=== PATIENT | female | born 1950 | race Caucasian/White ===

== ENCOUNTER 2020-07-01 21:04 | Emergency (ER) | payer BC, MEDICARE ==
[~2020-07-01] VITALS: Ht 165.1 cm; Wt 83.6 kg
[2020-07-01] MEDS ORDERED: SUCCINYLCHOLINE 200 MG/10 ML VIAL. ONE (21:12)
--- NOTE | 2020-07-01 21:22 | PHYS DOC ---
Past History Past Medical History no past medical history known on presentation Past Surgical History no past surgical history known Smoking: Non-smoker General Adult EDM: Chief Complaint: unresponsive HPI: HPI: Patient is a 70 year old female who presents via EMS after being found unresponsive. Patient was found lying in her kitchen and a bystander called EMS. Blood sugar 125 prior to arrival. IV was established and was patient was given Narcan 2 mg IV x2 doses prior to arrival with no improvement of symptoms. On synthetic filament extruder arrival she was not responsive and her sats were in the mid 80% range she was breathing spontaneously but had shallow respirations. GCS 3 on arrival. Patient was not responsive to noxious stimuli and did not have a gag reflex. Last known time well was about 5 PM when she talk to somebody on the phone. No visible signs of injury or trauma. Pupils were pinpoint on arrival and equal Review of Systems: Review of Systems: Constitutional: comatose Eyes: pinpoint pupils on arrival HENT: comatous Respiratory: shortness of breath Cardiovascular: comatose GI: comatose, no vomiting prior to arrival : comatose Musculoskeletal: comatose Integument: no rash Neurologic: Comatose Endocrine: comatose Lymphatic: comatose Psychiatric: comatose Heart Score: HEART Score for Chest Pain: HEART Score for Chest Pain Response (Comments) Value History Highly Suspicious 2 ECG Normal 0 Age > 65 2 Risk Factors No Risk Factors 0 Troponin < Normal Limit 0 Total 4 Risk Factors: Risk Factors: DM, Current or recent (<one month) smoker, HTN, HLP, family history of CAD, obesity. Risk Scores: Score 0 - 3: 2.5% MACE over next 6 weeks - Discharge Home Score 4 - 6: 20.3% MACE over next 6 weeks - Admit for Clinical Observation Score 7 - 10: 72.7% MACE over next 6 weeks - Early Invasive Strategies Current Medications: Current Meds: Current Medications Medications (Trade) Dose Ordered Sig/Lorenzo Start Time Stop Time Status Last Admin Dose Admin Succinylcholine Chloride (Anectine) 200 mg STK-MED ONCE 07/01/20 21:12 07/01/20 21:13 DC Physical Exam: PE: Constitutional: Well developed, well nourished, toxic appearance. [] HENT: Normocephalic, atraumatic, bilateral external ears normal, oropharynx moist, no oral exudates, nose normal. [] Eyes: Pupils pinpoint, minimally reactive, conjunctiva normal, no discharge. [] Neck: supple, no stridor. [] Cardiovascular:Heart rate regular rhythm, no murmur [] Lungs & Thorax: Bilateral breath sounds clear to auscultation, shallow respiratory effort on arrival [] Abdomen: Bowel sounds normal, soft, no masses, no pulsatile masses. [] Skin: Warm, dry, no erythema, no rash. [] Back: comatose. [] Extremities: no cyanosis, no edema. [] Neurologic: Comatose, GCS 3 on arrival, no response to noxious stimuli, no gag reflex. [] Psychologic: comatose. [] Current Patient Data: Labs: ABG read at 2141 showed pH 7.29, PCO2 53, PO2 329, bicarb 26 Vital Signs: Laboratory Tests Test 07/01/20 21:10 07/01/20 22:11 07/01/20 22:36 White Blood Count 8.5 x10^3/uL Red Blood Count 3.58 x10^6/uL Hemoglobin 10.3 g/dL Hematocrit 32.4 % Mean Corpuscular Volume 91 fL Mean Corpuscular Hemoglobin 29 pg Mean Corpuscular Hemoglobin Concent 32 g/dL Red Cell Distribution Width 15.1 % Platelet Count 296 x10^3/uL Neutrophils (%) (Auto) 63 % Lymphocytes (%) (Auto) 25 % Monocytes (%) (Auto) 8 % Eosinophils (%) (Auto) 3 % Basophils (%) (Auto) 1 % Neutrophils # (Auto) 5.4 x10^3uL Lymphocytes # (Auto) 2.1 x10^3/uL Monocytes # (Auto) 0.7 x10^3/uL Eosinophils # (Auto) 0.2 x10^3/uL Basophils # (Auto) 0.1 x10^3/uL Prothrombin Time 9.7 SEC Prothromb Time International Ratio 0.9 Blood Gas pH 7.30 Blood Gas PCO2 54 mmHg Blood Gas PO2 329 mmHg Blood Gas HCO3 26 mmol/L Arterial Bld O2 Saturation (Calc) 100 % FiO2 90 % Creatine Kinase 46 U/L Creatine Kinase MB (Mass) 1.0 ng/mL Creatine Kinase MB Relative Index % Troponin I Quantitative < 0.017 ng/mL IQ-Ynt-A-Type Natriuretic Peptide 102 pg/mL Urine Collection Type Unknown Urine Color Yellow Urine Clarity Hazy Urine pH 7.5 Urine Specific [place] 1.020 Urine Protein 30 mg/dl Urine Glucose (UA) Neg mg/dL Urine Ketones (Stick) Neg mg/dL Urine Blood Large Urine Nitrite Neg Urine Bilirubin Neg Urine Urobilinogen Dipstick 0.2 mg/dL Urine Leukocyte Esterase Trace Urine RBC >40 /HPF Urine WBC 11-20 /HPF Urine Squamous Epithelial Cells Few /LPF Urine Bacteria Mod /HPF Urine Opiates Screen Neg Urine Methadone Screen Neg Urine Barbiturates Neg Urine Phencyclidine Screen Neg Urine Amphetamine/Methamphetamine Neg Urine Benzodiazepines Screen Pos Urine Cocaine Screen Neg Urine Cannabinoids Screen Neg Urine Ethyl Alcohol Neg Sodium Level 138 mmol/L Potassium Level 4.6 mmol/L Chloride Level 103 mmol/L Carbon Dioxide Level 26 mmol/L Anion Gap 9 Blood Urea Nitrogen 14 mg/dL Creatinine 0.9 mg/dL Estimated GFR (Cockcroft-Gault) 62.3 BUN/Creatinine Ratio 16 Glucose Level 117 mg/dL Calcium Level 8.7 mg/dL Total Bilirubin Pending Aspartate Amino Transf (AST/SGOT) Pending Alanine Aminotransferase (ALT/SGPT) Pending Alkaline Phosphatase Pending Total Protein Pending Albumin Pending Albumin/Globulin Ratio Pending Current Medications Medications (Trade) Dose Ordered Sig/Lorenzo Route PRN Reason Start Time Stop Time Status Last Admin Dose Admin Succinylcholine Chloride (Anectine) 200 mg STK-MED ONCE .ROUTE 07/01/20 21:12 07/01/20 21:13 DC Propofol (Diprivan) 200,000 mcg 1X ONCE IV 07/01/20 21:30 07/01/20 22:18 DC Propofol 100 ml @ As Directed STK-MED ONCE IV 07/01/20 21:23 07/01/20 21:23 DC Propofol (Diprivan) 200,000 mcg 1X ONCE IV 07/01/20 22:30 07/01/20 22:32 DC 07/01/20 21:25 Midazolam HCl (Versed) 5 mg 1X ONCE IV 07/01/20 22:45 07/01/20 22:46 DC 07/01/20 21:16 Sodium Chloride 1,000 ml @ 0 mls/hr 1X IV 07/01/20 22:45 07/01/20 23:44 Sodium Chloride 1,000 ml @ 0 mls/hr 1X ONCE IV 07/01/20 23:45 07/01/20 23:46 EKG: EKG: Normal sinus rhythm, rate 68, leftward axis, otherwise unremarkable EKG, inverted T wave lead III, not STEMI [] Radiology/Procedures: Radiology/Procedures: [address] [address] IMAGING REPORT Signed PATIENT: JOVI KNAPP ACCOUNT: [id number] : 1950 LOCATION: ER AGE: 70 SEX: F EXAM STATUS: REG ER ORD. PHYSICIAN: JEFFY FERNANDES DO REASON: COMATOSE, FOUND UNRESPONSIVE.PT BAGGED.SOA PROCEDURE: PORTABLE CHEST 1V PORTABLE CHEST 1V Clinical Indication: Reason: COMATOSE, FOUND UNRESPONSIVE. PT BAGGED.SOA / Comparison: None. Findings: Endotracheal tube tip is approximately 3.6 cm superior to the ezekiel. Enteric tube tip is in the stomach. The cardiomediastinal silhouette is normal. There are low lung volumes. Difficult to exclude left basilar airspace disease due to the cardiac silhouette. Lungs are otherwise clear. There is no pneumothorax. No pleural effusion is appreciated. No acute bone abnormality. IMPRESSION: 1. Appropriate position of endotracheal and enteric tubes. 2. Low lung volumes. Cannot exclude left basilar airspace disease. Electronically signed by: Angel Velazquez MD (07/01/2020 10:24 PM) [facility] DICTATED AND SIGNED BY: ANGEL VELAZQUEZ MD DATE: 07/01/202223 CC: PCP,UNKNOWN; JEFFY FERNANDES DO ~ [] Impressions: [address] [address] IMAGING REPORT Signed PATIENT: JOVI KNAPP ACCOUNT: [id number] : 1950 LOCATION: ER AGE: 70 SEX: F EXAM STATUS: REG ER ORD. PHYSICIAN: JEFFY FERNANDES DO REASON: COMATOSE, FOUND UNRESPONSIVE.PT BAGGED.SOA PROCEDURE: CT HEAD AND CERVICAL SPINE WO STUDY: CT head and cervical spine without contrast INDICATION: Comatose. Found unresponsive. COMPARISON: None. TECHNIQUE: Axial CT imaging through the head and cervical spine without the use of intravenous contrast. Sagittal and coronal reformats were obtained. One or more of the following individualized dose reduction techniques were utilized for this examination: 1. Automated exposure control 2. Adjustment of the mA and/or kV according to patient size 3. Use of iterative reconstruction technique. FINDINGS: CT head: No acute intracranial hemorrhage. Be-white matter differentiation is maintained. No mass effect, midline shift or hydrocephalus. No acute abnormality seen to involve the scalp or imaged orbits. Intact calvarium. CT cervical spine: Partially imaged orogastric and endotracheal tubes. Reversal of cervical lordosis centered at C5. Severe discogenic arthrosis at C5-C6 more so than C4-C5 and C6-C7. Grade 1 anterolisthesis of C4 on C5 is presumably degenerative given the degree of facet degeneration at this level particularly on the left. Degenerative changes at the atlantodental interface. Osseous neural foraminal encroachment most severe on the right at C5-C6. Central canal stenosis is greatest at C5-C6 that is at least moderate to potentially severe. No acute fracture is identified. No prevertebral or dorsal paraspinous hematoma to suggest occult osseous injury. Scattered calcific atherosclerosis. Gas posterior to the left clavicle is likely iatrogenic from venipuncture. No apical pneumothorax. IMPRESSION: CT head: 1. No acute intracranial abnormality by CT. CT cervical spine: 1. No acute fracture. 2. Advanced multifactorial degenerative changes, as above, collectively greatest at C5-C6 where there is at least moderate to potentially severe central canal stenosis and right more so than left osseous neural foraminal stenosis. Electronically signed by: SIDDHARTHA ROTHMAN MD (07/01/2020 10:41 PM) [id number] DICTATED AND SIGNED BY: SIDDHARTHA ROTHMAN MD DATE: 07/01/202240 CC: PCP,UNKNOWN; JEFFY FERNANDES DO ~ Course & Med Decision Making: Course & Med Decision Making Pertinent Labs and Imaging studies reviewed. (See chart for details) 2121 patient started on a propofol drip because her gag reflex had returned and her systolic blood pressure improved to 150 systolic. We wanted to keep the patient sedated until the rest of the ER work-up could be completed 2209 case was discussed with Pao Rader a family member. She states that she had talked to this patient about 3:30 PM today after the patient gotten off work. Patient was complaining of acute on chronic knee pain. Patient was found about 8:20 PM by a niece. Patient was found unresponsive lying on the kitchen floor. There were thready vital signs so CPR was not started. Patient has a history of chronic pain and does take medications including tramadol, Naprosyn and others. Patient has no other known significant past medical history. Patient is not known to this institution and did not have old records I could review. Patient's vital signs have since normalized and we waiting for the rest of her ED work-up to be completed. Patient is resting comfortably on the ventilator 2304 major results known. Hospitalist service contacted at [facility] to accept case 2329 Dr. Sr is the accepting physician to [facility] to the intensive care unit 0059 Stable, EMS here to transport pt. She is somewhat more responsive again and the propofol drip was adjusted. Versed 5mg IVP added at this time to help with sedation for the ambulance transfer. Dragon Disclaimer: Dragon Disclaimer: This electronic medical record was generated, in whole or in part, using a voice recognition dictation system. Departure Departure: Impression: Primary Impression: Comatose Qualified Codes: R40.2431 - Gianna coma scale score 3-8, in the field [emt or ambulance] Additional Impressions: Acute UTI Respiratory failure Qualified Codes: J96.01 - Acute respiratory failure with hypoxia Chronic pain Qualified Codes: G89.4 - Chronic pain syndrome Disposition: 05 TRANSFER OTHER (Dr. Sr is accepting to the ICU at [facility]) Condition: STABLE Justification of Admission: Justification of Admission: Justification of Admission Dx: Yes Respiratory Failure: Mechanical Ventilation Intubation Intubation : Time of Intubation: 21:10 Intubation Method: orotracheal Tube Size (cm): 7.5 Medications: Succinylcholine Breath Sounds after Intubation: equal Intubation Complications: no complications Post Intubation Xray: Yes Progress/Xray Impression: Oxygenation sats 100% before and after intubation. Critical Care Time Critical care time was 30 minutes exclusive of procedures. This included assessing labs, x-ray results, talking to admitting transfer physician JEFFY FERNANDES DO Jul 01, 2020 21:22
[2020-07-01] MEDS ORDERED: PROPOFOL 100 ML IV ONE (21:23)
[2020-07-01] MEDS ORDERED: PROPOFOL 10,000 MCG/ML (20ML) VIAL IV ONE ×2 (21:30→22:30)
[2020-07-01 22:05] LABS: BASO # 0.1 x10^3/uL (0.0-0.2); BASO % 1 % (0-3); EOS # 0.2 x10^3/uL (0.0-0.7); EOS % 3 % (0-3); HEMATOCRIT 32.4 % (36.0-47.0); HEMOGLOBIN 10.3 g/dL (12.0-15.5); LYMPH # 2.1 x10^3/uL (1.0-4.8); LYMPH % 25 % (24-48); MEAN CORPUSCULAR HEMOGLOBIN 29 pg (25-35); MEAN CORPUSCULAR HGB CONC 32 g/dL (31-37); MEAN CORPUSCULAR VOLUME 91 fL (79-100); MONO # 0.7 x10^3/uL (0.0-1.1); MONO % 8 % (0-9); NEUT # 5.4 x10^3uL (1.8-7.7); NEUT % 63 % (31-73); PLATELET COUNT 296 x10^3/uL (140-400); RED BLOOD COUNT 3.58 x10^6/uL (3.50-5.40); RED CELL DISTRIBUTION WIDTH 15.1 % (11.5-14.5); WHITE BLOOD COUNT 8.5 x10^3/uL (4.0-11.0)
--- NOTE | 2020-07-01 22:26 | RAD ---
PORTABLE CHEST 1V Clinical Indication: Reason: COMATOSE, FOUND UNRESPONSIVE. PT BAGGED.SOA / Comparison: None. Findings: Endotracheal tube tip is approximately 3.6 cm superior to the ezekiel. Enteric tube tip is in the stomach. The cardiomediastinal silhouette is normal. There are low lung volumes. Difficult to exclude left basilar airspace disease due to the cardiac silhouette. Lungs are otherwise clear. There is no pneumothorax. No pleural effusion is appreciated. No acute bone abnormality. IMPRESSION: 1. Appropriate position of endotracheal and enteric tubes. 2. Low lung volumes. Cannot exclude left basilar airspace disease. Electronically signed by: Angel Velazquez MD (07/01/2020 10:24 PM) [facility]
[2020-07-01 22:39] LABS: BGAS PH 7.3 (7.35-7.45)
[2020-07-01 22:42] LABS: BARBITURATES NEG (NEG); BENZODIAZEPINES POS (NEG); CANNABINOIDS NEG (NEG); COCAINE NEG (NEG); METHADONE NEG (NEG); OPIATES NEG (NEG); PHENCYCLIDINE NEG (NEG)
--- NOTE | 2020-07-01 22:44 | RAD ---
STUDY: CT head and cervical spine without contrast INDICATION: Comatose. Found unresponsive. COMPARISON: None. TECHNIQUE: Axial CT imaging through the head and cervical spine without the use of intravenous contrast. Sagittal and coronal reformats were obtained. One or more of the following individualized dose reduction techniques were utilized for this examination: 1. Automated exposure control 2. Adjustment of the mA and/or kV according to patient size 3. Use of iterative reconstruction technique. FINDINGS: CT head: No acute intracranial hemorrhage. Be-white matter differentiation is maintained. No mass effect, midline shift or hydrocephalus. No acute abnormality seen to involve the scalp or imaged orbits. Intact calvarium. CT cervical spine: Partially imaged orogastric and endotracheal tubes. Reversal of cervical lordosis centered at C5. Severe discogenic arthrosis at C5-C6 more so than C4-C5 and C6-C7. Grade 1 anterolisthesis of C4 on C5 is presumably degenerative given the degree of facet degeneration at this level particularly on the left. Degenerative changes at the atlantodental interface. Osseous neural foraminal encroachment most severe on the right at C5-C6. Central canal stenosis is greatest at C5-C6 that is at least moderate to potentially severe. No acute fracture is identified. No prevertebral or dorsal paraspinous hematoma to suggest occult osseous injury. Scattered calcific atherosclerosis. Gas posterior to the left clavicle is likely iatrogenic from venipuncture. No apical pneumothorax. IMPRESSION: CT head: 1. No acute intracranial abnormality by CT. CT cervical spine: 1. No acute fracture. 2. Advanced multifactorial degenerative changes, as above, collectively greatest at C5-C6 where there is at least moderate to potentially severe central canal stenosis and right more so than left osseous neural foraminal stenosis. Electronically signed by: SIDDHARTHA ROTHMAN MD (07/01/2020 10:41 PM) [id number]
[2020-07-01 22:45] LABS: COLOR,URINE YELLOW
[2020-07-01] MEDS ORDERED: MIDAZOLAM HCL PF 5 MG/5 ML VIAL. IV ONE (22:45)
[2020-07-01] MEDS ORDERED: IV NORMAL SALINE 1,000ML 1,000 ML IV SCH (22:45)
[2020-07-01 22:46] LABS: BILIRUBIN,URINE NEG (NEG); CLARITY,URINE HAZY; GLUCOSE,URINE NEG (NEG); NITRITE,URINE NEG (NEG); UROBILINOGEN,URINE 0.2 mg/dL (0.2 mg/dL)
[2020-07-01 22:47] LABS: AMPHETAMINE/METHAMPHETAMINE NEG (NEG)
[2020-07-01 22:54] LABS: BACTERIA,URINE MOD /HPF (0-FEW); RBC,URINE >40 /HPF (0-2); SQUAMOUS EPITHELIAL CELL,UR FEW /LPF
[2020-07-01 22:55] LABS: CALCIUM 8.7 mg/dL (8.5-10.1); CREATININE 0.9 mg/dL (0.6-1.0); GFR 62.3; POTASSIUM 4.6 mmol/L (3.5-5.1)
[2020-07-01 23:01] LABS: ALBUMIN 3.3 g/dL (3.4-5.0); ALBUMIN/GLOBULIN RATIO 1.1 (1.0-1.7); TOTAL BILIRUBIN 0.4 mg/dL (0.2-1.0); TOTAL PROTEIN 6.2 g/dL (6.4-8.2)
[2020-07-01] MEDS ORDERED: PROPOFOL 100 ML IV PRN (23:30)
[2020-07-01] MEDS ORDERED: IV NORMAL SALINE 1,000ML 1,000 ML IV ONE (23:45)
[2020-07-01] MEDS ORDERED: IV NORMAL SALINE 50ML 50 ML ONE (23:54)
[2020-07-01] MEDS ORDERED: cefTRIAXone SODIUM 1 GM VIAL ONE (23:54)
[2020-07-02 00:38] VITALS: BP 104/65
[2020-07-02] MEDS ORDERED: MIDAZOLAM HCL PF 5 MG/5 ML VIAL. IV ONE (01:30)
--- NOTE | 2020-07-02 14:56 | EKG ---
[address] [address] Test Date: 2020-07-01 Test Time: 21:30:27 Pat Name: JOVI KNAPP Department: Room: Gender: F Time Study Observer: : 1950 Requested By: JEFFY FERNANDES Order Number: [id number] Reading MD: Mark Shipman Measurements Intervals [place] Rate: 68 P: 42 ND: 166 QRS: -20 QRSD: 90 T: 18 QT: 460 QTc: 489 Interpretive Statements SINUS RHYTHM LEFTWARD AXIS PROLONGED QT Electronically Signed On 07-07-2020 12:56:59 CDT by Mark Shipman
== END 2020-07-02 01:18 | disposition short-term general hospital (02) ==
LOC: ER 21:04
DX: N39.0 Urinary tract infection, site not specified (principal); J96.01 Acute respiratory failure with hypoxia; G89.4 Chronic pain syndrome; R40.2431 Glasgow coma scale score 3-8, in the field [EMT or ambulance]
CPT/HCPCS: 31500; 36415; 51702; 70450; 71045; 72125; 80053; 80307; 81001; 82553; 82803; 83880; 84484; 85025; 85610; 87040; 93005; 96361; 96365; 99152; 99291; J0696; J2250; J2704; J7030; 83605

== ENCOUNTER 2021-08-18 07:41 | Emergency (ER) | payer BC ==
[~2021-08-18] VITALS: Ht 165.1 cm; Wt 74.0 kg
[2021-08-18] MEDS ORDERED: ONDANSETRON PF 4 MG/2 ML VIAL. IVP ONE ×2 (08:00→11:00)
--- NOTE | 2021-08-18 08:04 | PHYS DOC ---
Past History Past Medical History: Other Additional Past Medical Histor: kidney stones Past Surgical History: Hysterectomy, Other Additional Past Surgical Histo: unknown Smoking: Non-smoker Alcohol Use: None General Adult EDM: Chief Complaint: BACK PAIN - NO INJURY HPI: HPI: 71-year-old female presents via EMS with sudden onset right flank pain. Patient woke up around 3 AM with pain in the right flank. She thought it might be related to her chronic low back pain so he took the gabapentin but the pain intensified. It is radiating around to the right lower quadrant of her abdomen. She describes it as an intense cramping sensation. It intensifies in waves and decreases, but does not go away. She does have a history of kidney stones in the past. She denies fever or chills. She has no other complaints at this time. Review of Systems: Review of Systems: Constitutional: Denies fever or chills Eyes: Denies change in visual acuity HENT: Denies nasal congestion or sore throat Respiratory: Denies cough or shortness of breath Cardiovascular: Denies chest pain or edema GI: Right lower quadrant abdominal pain, nausea. Denies vomiting, bloody stools or diarrhea : Denies dysuria Musculoskeletal: Right flank pain. Chronic back pain at baseline. Integument: Denies rash Neurologic: Denies headache, focal weakness or sensory changes Endocrine: Denies polyuria or polydipsia Lymphatic: Denies swollen glands Psychiatric: Denies depression or anxiety Allergies: Allergies: Allergies Coded Allergies Type Severity Reaction Last Updated Verified Unable to Assess 07/01/20 No Physical Exam: PE: Constitutional: Well developed, well nourished, obese, mild acute distress, non- toxic appearance. [] HENT: Normocephalic, atraumatic, bilateral external ears normal, oropharynx moist, no oral exudates, nose normal. [] Eyes: PERRLA, EOMI, conjunctiva normal, no discharge. [] Neck: Normal range of motion, no tenderness, supple, no stridor. [] Cardiovascular: Heart rate regular rhythm, no murmur [] Lungs & Thorax: Bilateral breath sounds clear to auscultation [] Abdomen: Bowel sounds normal, soft, no tenderness, no masses, no pulsatile masses. [] Skin: Warm, dry, no erythema, no rash. [] Back: No tenderness, right CVA tenderness. [] Extremities: No tenderness, no cyanosis, no clubbing, ROM intact, no edema. [] Neurologic: Alert and oriented X 3, normal motor function, normal sensory function, no focal deficits noted. [] Psychologic: Affect normal, judgement normal, mood normal. [] Current Patient Data: Vital Signs: Vital Signs Date Time Temp Pulse Resp B/P (MAP) Pulse Ox O2 Delivery O2 Flow Rate FiO2 08/18/21 07:51 97.4 54 20 179/88 (118) 100 Room Air EKG: EKG: [] Radiology/Procedures: Radiology/Procedures: [] Impressions: EXAMINATION: CT ABDOMEN+PELVIS WO CLINICAL HISTORY: Right flank pain TECHNIQUE: Imaging of the abdomen and pelvis was performed without intravenous contrast using standard technique, scanning from just above the dome of the diaphragm to the symphysis pubis. Unenhanced imaging is limited for the evaluation of some intra-abdominal and pelvic pathology. CT Dose Reduction Employed: One or more of the following individualized dose reduction techniques were utilized for this examination: 1. Automated exposure control 2. Adjustment of the mA and/or kV according to patient size 3. Use of iterative reconstruction technique. COMPARISON: None FINDINGS: Mild bibasilar subsegmental atelectasis and/or scarring. 2.5 cm subcapsular hypodense lesion in the left hepatic lobe, incompletely evaluated but favors a simple cyst. Gallbladder, pancreas, spleen, and adrenal glands unremarkable. 7 mm calculus in the proximal right ureter and 1.2 cm calculus in the right renal pelvis with moderate hydroureteronephrosis, renal edema, and perinephric stranding. Multiple additional nonobstructive right renal calculi. 8 mm calculus in the mid left ureter with mild hydroureteronephrosis. 1.3 cm partially exophytic lesion isodense to the surrounding cortex along the posterior upper pole of the left kidney versus focal lobulation, incompletely evaluated. Mildly filled urinary bladder. Uterus not definitively visualized, likely surgically absent. No dilated bowel. Colonic diverticulosis, greatest in the sigmoid colon, without evidence of acute diverticulitis on limited noncontrast evaluation. Appendix within normal limits. Arterial atherosclerotic calcification without aneurysm. Multilevel thoracolumbar degenerative changes with grade 1 L5-S1 anterolisthesis. IMPRESSION: Calculi in the right proximal ureter and renal pelvis with moderate hydroureteronephrosis and reactive inflammatory changes as described. Additional nonobstructive right nephrolithiasis. 8 mm calculus in the mid left ureter with mild hydroureteronephrosis. Nonspecific 1.3 cm left renal lesion as described, possibly a complex cyst but solid mass cannot be excluded. Recommend nonemergent/outpatient renal ultrasound for further evaluation. Additional nonacute findings as described. Electronically signed by: Gilbert Pratt DO (08/18/2021 9:03 AM) [facility] DICTATED AND SIGNED BY: GILBERT PRATT DO DATE: 08/18/21848 CC: YAMINI HENRY DO; PCP,UNKNOWN ~MTH0 0 Heart Score: C/O Chest Pain: N/A Risk Factors: Risk Factors: DM, Current or recent (<one month) smoker, HTN, HLP, family history of CAD, obesity. Risk Scores: Score 0 - 3: 2.5% MACE over next 6 weeks - Discharge Home Score 4 - 6: 20.3% MACE over next 6 weeks - Admit for Clinical Observation Score 7 - 10: 72.7% MACE over next 6 weeks - Early Invasive Strategies Course & Med Decision Making: Course & Med Decision Making Pertinent Labs and Imaging studies reviewed. (See chart for details) The patient CT is significant for bilateral kidney stones. There is an 8 mm stone obstructing the left ureter. See official read for more details. The patient's labs are unremarkable. The patient's urinalysis is pending. The patient stone is unlikely to pass and she more than likely needs further management of her stones on both sides. We will transfer the patient to another hospital with urology. She has had 2 doses of 75 mcg of fentanyl thus far. The patient would prefer to go to [facility] where she went 7 years ago. I spoke with [facility] and Dr. Alford believes the patient is appropriate, but there are no beds available at any campus. They will keep looking and we will try other hospital systems. We were able to find a bed for the patient at [facility]. Dr. Salgado has accepted the patient for transfer. She will go by ambulance. [] Ximena Disclaimer: Ximena Disclaimer: This electronic medical record was generated, in whole or in part, using a voice recognition dictation system. Departure Departure: Impression: Primary Impression: Bilateral kidney stones Disposition: 02 SHORT TERM HOSPITAL Condition: STABLE Referrals: PCP,UNKNOWN (PCP) YAMINI HENRY DO Aug 18, 2021 08:04
[2021-08-18] MEDS ORDERED: IV NORMAL SALINE 1,000ML 1,000 ML IV ONE (08:15)
[2021-08-18 08:23] LABS: BASO # 0.1 x10^3/uL (0.0-0.2); BASO % 1 % (0-3); EOS # 0.2 x10^3/uL (0.0-0.7); EOS % 2 % (0-3); HEMATOCRIT 37.4 % (36.0-47.0); HEMOGLOBIN 12.1 g/dL (12.0-15.5); LYMPH # 1.4 x10^3/uL (1.0-4.8); LYMPH % 14 % (24-48); MEAN CORPUSCULAR HEMOGLOBIN 29 pg (25-35); MEAN CORPUSCULAR HGB CONC 33 g/dL (31-37); MEAN CORPUSCULAR VOLUME 88 fL (79-100); MONO # 0.6 x10^3/uL (0.0-1.1); MONO % 6 % (0-9); NEUT # 8.3 x10^3uL (1.8-7.7); NEUT % 79 % (31-73); PLATELET COUNT 384 x10^3/uL (140-400); RED BLOOD COUNT 4.27 x10^6/uL (3.50-5.40); RED CELL DISTRIBUTION WIDTH 14.5 % (11.5-14.5); WHITE BLOOD COUNT 10.6 x10^3/uL (4.0-11.0)
[2021-08-18 08:30] LABS: CALCIUM 9.8 mg/dL (8.5-10.1); CREATININE 0.8 mg/dL (0.6-1.0)
[2021-08-18 08:31] LABS: GFR 71.1; POTASSIUM 3.4 mmol/L (3.5-5.1)
[2021-08-18 08:36] LABS: ALBUMIN 3.9 g/dL (3.4-5.0); TOTAL BILIRUBIN 0.3 mg/dL (0.2-1.0); TOTAL PROTEIN 7.8 g/dL (6.4-8.2)
--- NOTE | 2021-08-18 09:06 | RAD ---
EXAMINATION: CT ABDOMEN+PELVIS WO CLINICAL HISTORY: Right flank pain TECHNIQUE: Imaging of the abdomen and pelvis was performed without intravenous contrast using standar d technique, scanning from just above the dome of the diaphragm to the symphysis pubis. Unenhanced i maging is limited for the evaluation of some intra-abdominal and pelvic pathology. CT Dose Reduction Employed: One or more of the following individualized dose reduction techniques wer e utilized for this examination: 1. Automated exposure control 2. Adjustment of the mA and/or kV ac cording to patient size 3. Use of iterative reconstruction technique. COMPARISON: None FINDINGS: Mild bibasilar subsegmental atelectasis and/or scarring. 2.5 cm subcapsular hypodense lesion in the left hepatic lobe, incompletely evaluated but favors a sim ple cyst. Gallbladder, pancreas, spleen, and adrenal glands unremarkable. 7 mm calculus in the proximal right ureter and 1.2 cm calculus in the right renal pelvis with moderat e hydroureteronephrosis, renal edema, and perinephric stranding. Multiple additional nonobstructive r ight renal calculi. 8 mm calculus in the mid left ureter with mild hydroureteronephrosis. 1.3 cm part ially exophytic lesion isodense to the surrounding cortex along the posterior upper pole of the left kidney versus focal lobulation, incompletely evaluated. Mildly filled urinary bladder. Uterus not definitively visualized, likely surgically absent. No dilated bowel. Colonic diverticulosis, greatest in the sigmoid colon, without evidence of acute di verticulitis on limited noncontrast evaluation. Appendix within normal limits. Arterial atherosclerotic calcification without aneurysm. Multilevel thoracolumbar degenerative changes with grade 1 L5-S1 anterolisthesis. IMPRESSION: Calculi in the right proximal ureter and renal pelvis with moderate hydroureteronephrosis and reactiv e inflammatory changes as described. Additional nonobstructive right nephrolithiasis. 8 mm calculus in the mid left ureter with mild hydroureteronephrosis. Nonspecific 1.3 cm left renal lesion as described, possibly a complex cyst but solid mass cannot be e xcluded. Recommend nonemergent/outpatient renal ultrasound for further evaluation. Additional nonacute findings as described. Electronically signed by: Gilbert Arauz DO (08/18/2021 9:03 AM) JERAMY
[2021-08-18] MEDS ORDERED: MORPHINE SULFATE 4 MG/ML DISP.SYRIN. IV ONE ×2 (10:30→13:00)
[2021-08-18 12:35] VITALS: BP 148/87
[2021-08-18] MEDS ORDERED: cefTRIAXone SODIUM 1 GM VIAL ONE (12:37)
[2021-08-18] MEDS ORDERED: IV NORMAL SALINE 50ML 50 ML ONE (12:37)
[2021-08-18 12:45] LABS: BACTERIA,URINE 0 /HPF (0-FEW); BILIRUBIN,URINE NEG (NEG); CLARITY,URINE HAZY; COLOR,URINE YELLOW; GLUCOSE,URINE NEG (NEG); NITRITE,URINE NEG (NEG); RBC,URINE >40 /HPF (0-2); SQUAMOUS EPITHELIAL CELL,UR MOD /LPF; UROBILINOGEN,URINE 0.2 mg/dL (0.2 mg/dL)
[2021-08-18 12:46] LABS: AMORPHOUS SEDIMENT,UR PRESENT /HPF
== END 2021-08-18 14:04 | disposition short-term general hospital (02) ==
LOC: ER 07:41
DX: N13.2 Hydronephrosis with renal and ureteral calculous obstruction (principal); Z20.822 Contact with and (suspected) exposure to COVID-19; Z87.442 Personal history of urinary calculi; Z90.710 Acquired absence of both cervix and uterus
CPT/HCPCS: 36415; 74176; 80053; 81001; 85025; 87086; 87426; 96361; 96365; 96375; 96376; 99285; J0696; J2270; J2405; J3010; J7030; U0003

== ENCOUNTER 2022-02-10 19:45 | Emergency (ER) | payer BC ==
[~2022-02-10] VITALS: Ht 165.1 cm; Wt 76.0 kg
[2022-02-10] MEDS ORDERED: IV NORMAL SALINE 1,000ML 1,000 ML IV ONE ×2 (20:00→20:45)
--- NOTE | 2022-02-10 20:01 | PHYS DOC ---
Past History Past Medical History: Other Additional Past Medical Histor: kidney stones Past Surgical History: Hysterectomy, Other Additional Past Surgical Histo: uretal stents Smoking: Non-smoker Alcohol Use: None General Adult EDM: Chief Complaint: WEAKNESS/GENERALIZED HPI: HPI: 72-year-old female presents with generalized weakness. The patient had bilateral ureteral stents placed for kidney stones recently. She had them both removed at [facility] yesterday. The patient felt like she had chills last night. She presents today because she has just felt more more rundown throughout the day. She denies shortness of breath, but was needing oxygen when EMS arrived. The patient is not normally on oxygen. She denies any chest pain. Review of Systems: Review of Systems: Constitutional: Generalized weakness, chills Eyes: Denies change in visual acuity HENT: Denies nasal congestion or sore throat Respiratory: Denies cough or shortness of breath Cardiovascular: Denies chest pain or edema GI: Denies abdominal pain, nausea, vomiting, bloody stools or diarrhea : Denies dysuria Musculoskeletal: Denies back pain or joint pain Integument: Denies rash Neurologic: Denies headache, focal weakness or sensory changes Endocrine: Denies polyuria or polydipsia Lymphatic: Denies swollen glands Psychiatric: Denies depression or anxiety Allergies: Allergies: Allergies Coded Allergies Type Severity Reaction Last Updated Verified No Known Drug Allergies 02/10/22 No Physical Exam: PE: Constitutional: Well developed, well nourished, no acute distress, non-toxic appearance. [] HENT: Normocephalic, atraumatic, bilateral external ears normal, oropharynx moist, no oral exudates, nose normal. [] Eyes: PERRLA, EOMI, conjunctiva normal, no discharge. [] Neck: Normal range of motion, no tenderness, supple, no stridor. [] Cardiovascular: Heart rate 88, regular rhythm, no murmur [] Lungs & Thorax: Bilateral breath sounds diminished. [] Abdomen: Bowel sounds normal, soft, no tenderness, no masses, no pulsatile masses. [] Skin: Warm, dry, no erythema, no rash. [] Back: No tenderness, no CVA tenderness. [] Extremities: No tenderness, no cyanosis, no clubbing, ROM intact, no edema. [] Neurologic: Alert and oriented X 3, normal motor function, normal sensory function, no focal deficits noted. [] Psychologic: Affect normal, judgement normal, mood normal. [] Current Patient Data: Vital Signs: Vital Signs Date Time Temp Pulse Resp B/P (MAP) Pulse Ox O2 Delivery O2 Flow Rate FiO2 02/10/22 19:49 98.1 88 18 80/50 (60) 96 EKG: EKG: Sinus rhythm, leftward axis, no ST elevation or depression. [] Radiology/Procedures: Radiology/Procedures: [] Impressions: Chest AP portable at 2008: Reason for examination: Short of breath. Comparison is made to previous study dated 07/01/2020. The heart size is normal. Mediastinum is unremarkable. Lung ca continue show elevation of the right hemidiaphragm. No acute infiltrates or pleural effusions are seen. No acute bony abnormalities are seen. Impression: No acute cardiopulmonary disease. Electronically signed by: Patsy Ward MD (02/10/2022 8:21 PM) [facility] DICTATED AND SIGNED BY: PATSY WARD MD DATE: 02/10/222019 CC: YAMINI HENRY DO; PCP,UNKNOWN ~ Heart Score: C/O Chest Pain: N/A Risk Factors: Risk Factors: DM, Current or recent (<one month) smoker, HTN, HLP, family history of CAD, obesity. Risk Scores: Score 0 - 3: 2.5% MACE over next 6 weeks - Discharge Home Score 4 - 6: 20.3% MACE over next 6 weeks - Admit for Clinical Observation Score 7 - 10: 72.7% MACE over next 6 weeks - Early Invasive Strategies Course & Med Decision Making: Course & Med Decision Making Pertinent Labs and Imaging studies reviewed. (See chart for details) On arrival we performed a room air oxygen saturation test. The patient's fi ngers were warm and she was satting 86%. She was then placed on 2 L. Patient's blood pressure was also low at 80/50. She is alert and oriented and not really complaining of anything specific other than weakness. We have started a liter normal saline. EKG is unremarkable. The patient's urinalysis was cloudy but not bloody. Her hemoglobin is 8.8. We have previous hemoglobins from 10-12. No obvious source of bleeding. The patient's blood pressure continues to be low. We will start a second regular of normal saline and undergoing treatment with a gram of Rocephin and 750 of levofloxacin for presumed UTI sepsis. The patient has almost had her 2 L and her blood pressure is still MAP under 60. We will start Levophed. I have talked to Altagracia REYNOSO at [facility] and she will get the patient an ICU bed for transfer. The patient is in agreement with this plan. She will go by ambulance. [] Dragon Disclaimer: Dragvictor m Disclaimer: This electronic medical record was generated, in whole or in part, using a voice recognition dictation system. Departure Departure: Impression: Primary Impression: UTI (urinary tract infection) Qualified Codes: N39.0 - Urinary tract infection, site not specified Additional Impression: Sepsis Disposition: 02 SHORT TERM HOSPITAL Condition: GUARDED Referrals: PCP,UNKNOWN (PCP) YAMINI HENRY DO February 10, 2022 20:00
[2022-02-10] MEDS ORDERED: CEPH500C PO (20:04)
[2022-02-10] MEDS ORDERED: GABA-585 PO (20:04)
[2022-02-10] MEDS ORDERED: TRAM100T10 PO (20:05)
[2022-02-10 20:18] LABS: BASO % 0 % (0-3); EOS % 0 % (0-3); HEMATOCRIT 27.9 % (36.0-47.0); HEMOGLOBIN 8.8 g/dL (12.0-15.5); LYMPH # 0.6 x10^3/uL (1.0-4.8); LYMPH % 4 % (24-48); MEAN CORPUSCULAR HEMOGLOBIN 26 pg (25-35); MEAN CORPUSCULAR HGB CONC 32 g/dL (31-37); MEAN CORPUSCULAR VOLUME 84 fL (79-100); MONO # 1.1 x10^3/uL (0.0-1.1); MONO % 8 % (0-9); NEUT # 12.1 x10^3uL (1.8-7.7); NEUT % 88 % (31-73); PLATELET COUNT 266 x10^3/uL (140-400); RED BLOOD COUNT 3.34 x10^6/uL (3.50-5.40); WHITE BLOOD COUNT 13.8 x10^3/uL (4.0-11.0)
--- NOTE | 2022-02-10 20:23 | RAD ---
Chest AP portable at 2008: Reason for examination: Short of breath. Comparison is made to previous study dated 07/01/2020. The heart size is normal. Mediastinum is unremarkable. Lung ca continue show elevation of the rig ht hemidiaphragm. No acute infiltrates or pleural effusions are seen. No acute bony abnormalities are seen. Impression: No acute cardiopulmonary disease. Electronically signed by: Patsy Henry MD (02/10/2022 8:21 PM) KELSEY
[2022-02-10 20:30] LABS: CALCIUM 8.1 mg/dL (8.5-10.1); GFR 24.6; POTASSIUM 3.5 mmol/L (3.5-5.1)
[2022-02-10 20:37] LABS: ALBUMIN 2.4 g/dL (3.4-5.0); ALBUMIN/GLOBULIN RATIO 0.9 (1.0-1.7); TOTAL BILIRUBIN 0.3 mg/dL (0.2-1.0); TOTAL PROTEIN 5.2 g/dL (6.4-8.2)
[2022-02-10] MEDS ORDERED: IV NORMAL SALINE 50ML 50 ML ONE (20:52)
[2022-02-10] MEDS ORDERED: cefTRIAXone SODIUM 1 GM VIAL ONE (20:52)
[2022-02-10] MEDS ORDERED: NOREPINEPHRINE BITARTRATE 8 MG in IV DEXTROSE 5% 250 ML IV PRN (21:00)
[2022-02-10] MEDS ORDERED: IV DEXTROSE 5% 250 ML IV ONE (21:09)
[2022-02-10] MEDS ORDERED: NOREPINEPHRINE BITARTRATE 4 MG/4 ML VIAL. IV ONE (21:09)
[2022-02-10 21:10] LABS: BACTERIA,URINE MOD /HPF (0-FEW); CLARITY,URINE CLOUDY; COLOR,URINE YELLOW; GLUCOSE,URINE NEG (NEG); NITRITE,URINE NEG (NEG); UROBILINOGEN,URINE 0.2 mg/dL (0.2 mg/dL); WBC,URINE TNTC /HPF (0-4)
[2022-02-10 21:11] LABS: SQUAMOUS EPITHELIAL CELL,UR FEW /LPF
[2022-02-10 21:16] LABS: INFLUENZA A PATIENT NEGATIVE (NEGATIVE); INFLUENZA B PATIENT NEGATIVE (NEGATIVE)
[2022-02-10 21:24] VITALS: BP 83/49
--- NOTE | 2022-02-11 00:55 | EKG ---
[address] [address] Test Date: 2022-02-10 Test Time: 19:58:19 Pat Name: JOVI KNAPP Department: Room: Gender: F [employer]: : 1950 Requested By: YAMINI HENRY Order Number: [id number] Reading MD: Joshua Kelley MD Measurements Intervals Keeler Rate: 88 P: 39 WV: 144 QRS: -20 QRSD: 86 T: 35 QT: 372 QTc: 454 Interpretive Statements SINUS RHYTHM Electronically Signed On 02-13-2022 8:57:44 CDT by Joshua Kelley MD
== END 2022-02-10 22:12 | disposition short-term general hospital (02) ==
LOC: ER 19:45
DX: A41.9 Sepsis, unspecified organism (principal); N39.0 Urinary tract infection, site not specified; Z20.822 Contact with and (suspected) exposure to COVID-19; Z87.442 Personal history of urinary calculi; Z90.710 Acquired absence of both cervix and uterus
CPT/HCPCS: 36415; 51702; 71045; 80053; 81001; 83605; 84484; 85025; 87040; 87077; 87086; 87186; 87428; 93005; 96361; 96365; 96367; 99285; C9803; J0696; J1956; J7030; U0003